=== PATIENT | female | born 1980 | race Two or more races ===

== ENCOUNTER 2019-02-06 15:03 | Emergency (ER) | payer OTHER ==
[~2019-02-06] VITALS: Ht 162.6 cm; Wt 65.8 kg
[~2019-02-06 15:03] MED LIST: TEGRETOL XR200 MG; [UNRECOGNIZED DRUG - OTHER]
[2019-02-06] MEDS ORDERED: LAMICTAL100 M1 PO (17:09)
[2019-02-06] MEDS ORDERED: FLONASE ALLERG9.9 ML NASAL (17:09)
== END 2019-02-06 17:17 | disposition home or self-care (01) ==
LOC: ER 15:03
DX: H65.01 Acute serous otitis media, right ear (principal)

== ENCOUNTER 2020-09-03 18:09 | Emergency (ER) | payer OTHER ==
[~2020-09-03] VITALS: Ht 162.6 cm; Wt 70.3 kg
[~2020-09-03 18:09] MED LIST changes: +FLONASE ALLERG9.9 ML NASAL; +LAMICTAL100 M1 PO
[2020-09-03] MEDS ORDERED: LAMICTAL ODT50 MG PO (18:30)
== END 2020-09-03 20:15 | disposition home or self-care (01) ==
LOC: ER 18:09
DX: S40.012A Contusion of left shoulder, initial encounter (principal); W18.09XA Striking against other object with subsequent fall, initial encounter; Y93.89 Activity, other specified; Y92.098 Other place in other non-institutional residence as the place of occurrence of the external cause; Y99.8 Other external cause status

== ENCOUNTER 2023-07-09 17:33 | Emergency (ER) | payer OTHER ==
[~2023-07-09] VITALS: Ht 162.6 cm; Wt 65.8 kg
[~2023-07-09 17:33] MED LIST changes: +LAMICTAL ODT50 MG PO
[2023-07-09 20:19] LABS: HEMOGLOBIN 13.8 g/dL (12.0-15.00); MEAN CORPUSCULAR HGB CONC 33.7 g/dl (32.0-36.0); PLATELET COUNT 245 K/uL (150-450); RED BLOOD COUNT 4.61 M/uL (4.00-6.00); RED CELL DISTRIBUTION WIDTH 13.4 % (11.5-14.5)
[2023-07-09 20:42] LABS: ALBUMIN 3.9 gm/dL (3.4-5.0); BILIRUBIN TOTAL 0.6 mg/dL (0.3-1.2); CALCIUM 8.9 mg/dL (8.5-10.1); CREATININE SERUM 0.92 mg/dL (0.55-1.02); GFR 66.31; GLOBULINA 4.3 G/DL (2.4-3.5); POTASSIUM 3.45 mEq/L (3.5-5.1); TOTAL PROTEIN 8.2 gm/dL (6.4-8.2)
[2023-07-09 21:03] LABS: INR 1.01; PROTHROMBIN TIME 10.6 SECONDS (9.0-11.5)
[2023-07-09 21:06] LABS: PH,URINE 5.5 (5.0-8.0); URINE APPEARANCE Clear; URINE BILIRRUBIN Negative (NEGATIVE); URINE BLOOD Negative; URINE COLOR Yellow; URINE GLUCOSE Negative (NEGATIVE); URINE LEUKOCYTE Negative; URINE NITRATE Negative; URINE PROTEIN Negative (NEGATIVE); URINE UROBILINOGEN 0.2 E.U./dl
[2023-07-09 21:09] LABS: URINE BACTERIA 217.8 uL (0.0-1933); URINE EPITHELIAL CELLS 9.5 uL (0.0-38.8); URINE RBC 2.4 uL (0.0-20.8); URINE WBC 9.5 uL (0.0-23.2)
== END 2023-07-09 23:23 | disposition home or self-care (01) ==
LOC: ER 17:33
PROVIDERS: General Practice
DX: K52.89 Other specified noninfective gastroenteritis and colitis (principal); N83.292 Other ovarian cyst, left side
CPT/HCPCS: 36415; 74177; 96365; 96366; 99284; J2250; J2543; J3490; J7030; Q9965

== ENCOUNTER 2024-07-07 10:53 | Emergency (ER) | payer OTHER ==
[~2024-07-07] VITALS: Ht 162.6 cm; Wt 71.2 kg
[2024-07-07] MEDS ORDERED: MAG HYDROX/ALUMINUM HYD/SIMETH 30 ML BLIST.PACK PO ONE (12:15)
[2024-07-07] MEDS ORDERED: KETOROLAC TROMETHAMINE 30 MG VIAL IV ONE (12:15)
[2024-07-07] MEDS ORDERED: FAMOTIDINE/PF 20 MG/2 ML VIAL IV PUSH ONE (12:15)
[2024-07-07] MEDS ORDERED: 0.9 % SODIUM CHLORIDE 1,000 ML IV SCH (12:15)
[2024-07-07 12:44] LABS: HEMATOCRIT 39.7 % (36.0-45.00); HEMOGLOBIN 13.6 g/dL (12.0-15.00); MEAN CELL VOLUME 87.3 fL (80.00-100.00); MEAN CORPUSCULAR HEMOGLOBIN 29.8 pg (27.00-32.0); MEAN CORPUSCULAR HGB CONC 34.1 g/dl (32.0-36.0); PLATELET COUNT 236 K/uL (150-450); RED BLOOD COUNT 4.55 M/uL (4.00-6.00); RED CELL DISTRIBUTION WIDTH 13.6 % (11.5-14.5)
[2024-07-07 14:41] LABS: ALBUMIN 3.7 gm/dL (3.4-5.0); BILIRUBIN TOTAL 0.29 mg/dL (0.3-1.2); CALCIUM 8.6 mg/dL (8.5-10.1); CREATININE SERUM 0.85 mg/dL (0.55-1.02); GFR 72.32; GLOBULINA 4.2 G/DL (2.4-3.5); POTASSIUM 3.78 mEq/L (3.5-5.1); TOTAL PROTEIN 7.9 gm/dL (6.4-8.2)
[2024-07-07 15:27] LABS: URINE APPEARANCE Clear; URINE BILIRRUBIN Negative (NEGATIVE); URINE BLOOD Negative; URINE COLOR Yellow; URINE GLUCOSE Negative (NEGATIVE); URINE KETONE Trace (NEGATIVE); URINE LEUKOCYTE Negative; URINE NITRATE Negative; URINE PROTEIN Negative (NEGATIVE); URINE UROBILINOGEN 0.2 E.U./dl
[2024-07-07 15:28] LABS: URINE BACTERIA 546.7 uL (0.0-1933); URINE EPITHELIAL CELLS 17.9 uL (0.0-38.8); URINE RBC 2.5 uL (0.0-20.8); URINE WBC 8.1 uL (0.0-23.2)
== END 2024-07-07 19:15 | disposition home or self-care (01) ==
LOC: ER 10:55
PROVIDERS: Emergency Medicine
DX: E86.0 Dehydration (principal); A05.9 Bacterial foodborne intoxication, unspecified

== ENCOUNTER 2025-03-06 08:10 | Outpatient (CLI) | payer OTHER | END 2025-03-06 08:13 | disposition home or self-care (01) | LOC: TOM 08:10 | PROVIDERS: ATTEND Internal Medicine Gastroenterology | DX: R10.9 Unspecified abdominal pain (principal) ==

== ENCOUNTER 2025-04-18 07:57 | Inpatient (IN) | payer OTHER ==
[~2025-04-18] VITALS: Ht 162.6 cm; Wt 65.8 kg
[2025-04-18] MEDS ORDERED: PEPCID AC20 MG (08:00)
[2025-04-18] MEDS ORDERED: PROTONIX40 MG PO (08:00)
[2025-04-18] MEDS ORDERED: LEVSIN/SL0.125 MG (08:01)
[2025-04-18] MEDS ORDERED: MORPHINE SULFATE 4 MG/ML CARTRIDGE IV ONE (08:30)
[2025-04-18] MEDS ORDERED: METRONIDAZOLE/SODIUM CHLORIDE 500 MG/100 ML PIGGYBACK IV ONE (08:45)
[2025-04-18] MEDS ORDERED: 0.9 % SODIUM CHLORIDE 1,000 ML IV SCH (08:45)
[2025-04-18 10:00] LABS: BASO % 0.3 % (0.1-1.2); EOS # 0.05 (0.04-0.54); EOS % 0.4 % (0.7-7.0); LYMPH # 0.39 (1.18-3.74); LYMPH % 3.3 % (19.3-53.1); MEAN PLATELET VOLUME 10.20 fl (9.4-12.4); MONO # 0.27 (0.24-0.82); MONO % 2.3 % (4.7-12.5); NEUT # 11.17 (1.56-6.13); NEUT % 93.4 % (34.0-71.1); RED CELL DISTRIBUTION WIDTH 12.7 % (11.6-14.4)
[2025-04-18 10:35] LABS: ALT/SGPT 395.0 U/L (12-78); AST/SGOT 716.0 U/L (15-37); BILIRUBIN TOTAL 2.08 mg/dL (0.3-1.2); BUN CREA RATIO 12.0 (7.0-25.0); CREATININE SERUM 0.97 mg/dL (0.55-1.02); GFR 61.82; GLOBULINA 4.6 G/DL (2.4-3.5); GLUCOSE FASTING 105.0 mg/dL (65-100); OSMOLALITY SERUM 276.0 MOSM/KG (275-295)
[2025-04-18] MEDS ORDERED: ONDANSETRON 4 MG TAB.RAPDIS PO ONE (15:00)
[2025-04-18] MEDS ORDERED: PROMETHAZINE HCL 25 MG/ML AMPUL IM PRN (20:15)
[2025-04-18] MEDS ORDERED: KETOROLAC TROMETHAMINE 30 MG VIAL IU PRN (20:15)
[2025-04-18] MEDS ORDERED: ONDANSETRON HCL 4 MG in 0.9 % SODIUM CHLORIDE 50 ML IV PRN (20:15)
[2025-04-18] MEDS ORDERED: MEPERIDINE HCL/PF 25 MG/ML VIAL IM PRN (20:15)
[2025-04-18 21:44] LABS: COVID-19 AG NEGATIVE (NEGATIVE)
[2025-04-19] MEDS ORDERED: PIPERACILLIN/TAZOBACTAM SODIUM 3.375 GM in 0.9 % SODIUM CHLORIDE 100 ML IV SCH
[2025-04-19 03:10] VITALS: BP 105/75; O2SAT 99
[2025-04-19 08:00] VITALS: BP 97/59; O2SAT 99
[2025-04-19] MEDS ORDERED: FAMOTIDINE/PF 20 MG/2 ML VIAL IV SCH (09:00)
[2025-04-19 15:00] VITALS: BP 114/80; O2SAT 99
[2025-04-20 01:07] VITALS: BP 95/61; O2SAT 99
[2025-04-20 08:34] VITALS: BP 93/64; O2SAT 99
[2025-04-20 16:00] VITALS: BP 112/74; O2SAT 98
[2025-04-21 06:48] LABS: BASO % 0.5 % (0.1-1.2); EOS # 0.20 (0.04-0.54); EOS % 5.4 % (0.7-7.0); LYMPH # 1.15 (1.18-3.74); LYMPH % 30.8 % (19.3-53.1); MEAN PLATELET VOLUME 10.20 fl (9.4-12.4); MONO # 0.42 (0.24-0.82); MONO % 11.3 % (4.7-12.5); NEUT # 1.93 (1.56-6.13); NEUT % 51.7 % (34.0-71.1); RED CELL DISTRIBUTION WIDTH 13.0 % (11.6-14.4)
[2025-04-21 07:34] LABS: ALT/SGPT 336.0 U/L (12-78); AST/SGOT 98.0 U/L (15-37); BILIRUBIN TOTAL 0.75 mg/dL (0.3-1.2); BUN CREA RATIO 20.0 (7.0-25.0); CREATININE SERUM 0.96 mg/dL (0.55-1.02); GFR 62.57; GLOBULINA 3.1 G/DL (2.4-3.5); GLUCOSE FASTING 78.0 mg/dL (65-100); OSMOLALITY SERUM 288.0 MOSM/KG (275-295)
[2025-04-21 08:00] VITALS: BP 121/83; O2SAT 98
[2025-04-21 11:44] LABS: INR 1.05
[2025-04-22 08:00] VITALS: BP 139/86; O2SAT 100
[2025-04-22] MEDS ORDERED: SUGAMMADEX SODIUM 200 MG/2 ML VIAL IV ONE (14:15)
[2025-04-22] MEDS ORDERED: MORPHINE SULFATE 4 MG/ML VIAL IV ONE ×2 (14:45→15:15)
[2025-04-22 18:18] VITALS: BP 133/82; O2SAT 97
[2025-04-22] MEDS ORDERED: MORPHINE SULFATE 4 MG/ML CARTRIDGE IV PRN (20:45)
[2025-04-23 01:46] VITALS: BP 110/69; O2SAT 97
[2025-04-23 10:20] VITALS: BP 124/83; O2SAT 98
== END 2025-04-23 17:53 | disposition home or self-care (01) | DRG 419 ==
LOC: ER 07:57 → SURG 23:02
PROVIDERS: Emergency Medicine; General Practice; Internal Medicine; Surgery; ADMIT Internal Medicine; ATTEND Internal Medicine
PROC: BW21YZZ Computerized Tomography (CT Scan) of Abdomen and Pelvis using Other Contrast (ICD-10-PCS; 2025-04-18)
PROC: BF43ZZZ Ultrasonography of Gallbladder and Bile Ducts (ICD-10-PCS; 2025-04-18)
PROC: BF37ZZZ Magnetic Resonance Imaging (MRI) of Pancreas (ICD-10-PCS; 2025-04-19)
PROC: 0FT44ZZ Resection of Gallbladder, Percutaneous Endoscopic Approach (ICD-10-PCS; principal; 2025-04-22 14:30)
DX: K80.10 Calculus of gallbladder with chronic cholecystitis without obstruction (principal); K52.9 Noninfective gastroenteritis and colitis, unspecified